=== PATIENT | female | born 2000 | race Caucasian/White ===

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

== ENCOUNTER 2021-03-05 16:19 | Emergency (ER) | payer MEDICAID ==
[~2021-03-05] VITALS: Ht 154.9 cm; Wt 42.0 kg
--- NOTE | 2021-03-05 16:40 | NUR ---
PT REPORTS LACERATION TO LEFT INDEX FINGER, REFUSING TO REMOVE BANDAGE AT THIS TIME. ED PA AT BEDSIDE REQUESTING PT REMOVE BANDAGE, PT CONTINUES TO REFUSE STATING, "THIS ONE ISN'T THE PROBLEM."
[2021-03-05] MEDS ORDERED: HYDROcodone/APAP 5/325 TABLET ONE (17:38)
[2021-03-05] MEDS ORDERED: BACITRACIN ZINC OINT 500U/GM, 0.9 GM ONE (17:38)
[2021-03-05] MEDS ORDERED: HYDROcodone/APAP 5/325 TABLET PO ONE (18:00)
[2021-03-05 18:01] VITALS: BP 128/96
--- NOTE | 2021-03-05 18:02 | NUR ---
TASK RN: Patient/Caregiver given discharge instructions and they have confirmed that they understand the instructions. Patient ambulatory with steady gait. NAD, all questions answered appropriately, denies additional needs at this time. No personal belongings left in room after discharge.
== END 2021-03-05 18:03 | disposition home or self-care (01) ==
LOC: ED 17:06
DX: S61.211A Laceration without foreign body of left index finger without damage to nail, initial encounter (principal); L03.012 Cellulitis of left finger; R21 Rash and other nonspecific skin eruption; X58.XXXA Exposure to other specified factors, initial encounter; Y93.89 Activity, other specified; Y92.89 Other specified places as the place of occurrence of the external cause; Y99.8 Other external cause status
CPT/HCPCS: 99283